=== PATIENT | male | born 1965 | race Caucasian/White ===

== ENCOUNTER 2024-03-15 18:22 | Emergency (ER) | payer BC, OTHER ==
[2024-03-15 18:30] VITALS: BP 133/83; PULSE 82; RESP 18; TEMP 98; BMI 26.8
[2024-03-15 20:11] LABS: METHADONE, UR NEGATIVE (NEGATIVE); URINE AMPHETAMINES NEGATIVE (NEGATIVE)
[2024-03-15 20:12] LABS: COCAINE, UR NEGATIVE (NEGATIVE); OPIATES, URI NEGATIVE (NEGATIVE); PHENCYCLIDINE,URINE NEGATIVE (NEGATIVE)
[2024-03-15 20:28] LABS: URINE BARBITURATES NEGATIVE (NEGATIVE); URINE BENZODIAZEPINES NEGATIVE (NEGATIVE)
== END 2024-03-15 20:57 | disposition home or self-care (01) ==
LOC: JERFT 18:22
DX: Z04.1 Encounter for examination and observation following transport accident (principal)
CPT/HCPCS: 80307; 99283-25